=== PATIENT | male | born 1990 | race Caucasian/White ===

== ENCOUNTER 2016-12-25 14:37 | Emergency (ER) | payer MEDICAID ==
[~2016-12-25 14:37] MED LIST: BENADRYL25 MG PO; CARBAMAZEPINE200 M1 PO; FLOMAX0.4 MG PO; KLONOPIN0.5 MG PO; LEVAQUIN500 MG PO; REMERON30 MG PO; RISPERDAL1 MG PO
--- NOTE | 2017-01-10 15:27 | ER ---
ADMIT: 12/25/2016 RM/LOC: ER [facility] MR#: [id number] [address] [address] CHINYERE LANDIN [address] [place] [address] Emergency Room Report SEX: M AGE: 26 : 1990 DATE: 12/25/2016 ADDENDUM: A 26-year-old white male coming in after cutting his left index finger on the dorsum of his finger. Note neurovascular tendon disruption. This is closed by the PA student under my supervision. Sutures should come out in 7-10 days. Keep it dressed and clean and dry. CONDITION ON DISCHARGE: Improved. Mikhail Mcconnell MD/ carolyn JOB #: [id number] CC: Mikhail Mcconnell MD, Attending Physician Darlene Tellez MD, Family Physician
== END 2016-12-25 15:48 | disposition home or self-care (01) ==
LOC: ER 14:37
DX: S61.211A Laceration without foreign body of left index finger without damage to nail, initial encounter (principal); F17.210 Nicotine dependence, cigarettes, uncomplicated; Z88.0 Allergy status to penicillin; W26.0XXA Contact with knife, initial encounter; Y92.009 Unspecified place in unspecified non-institutional (private) residence as the place of occurrence of the external cause

== ENCOUNTER 2017-01-03 23:07 | Emergency (ER) | payer MEDICAID ==
--- NOTE | 2017-01-11 18:52 | ER ---
ADMIT: 01/03/2017 RM/LOC: ER [facility] MR#: [id number] [address] [address] CHINYERE LANDIN [address] [place] [address] Emergency Room Report SEX: M AGE: 26 : 1990 DATE: 01/03/2017 ADDENDUM: This patient comes to the ER because he states he was washing glass and the glass broke and cut his left hand. He has 5 lacerations on his left hand dorsal aspect; 2 of them are superficial and do not require stitches, 3 of them goes through the dermis and do require stitches. He has good range of motion of all of his digits. The laceration goes through the top layer of dermis, no tendons are affected. I infiltrated the area with lidocaine and/or epi and placed a total of 11 stitches using 4-0 Prolene. I did infiltrate the area with bupivacaine with lidocaine. The police were contacted, stitches were removed in 7 days. Please see my T-sheet. ADÁN Alfaro / Omar Lyons MD / carolyn JOB #: [id number] CC: Omar Lyons MD, Attending Physician Maxime De Oliveira MD, Family Physician
== END 2017-01-04 00:05 | disposition home or self-care (01) ==
LOC: ER 23:07
PROC: 0HQGXZZ Repair Left Hand Skin, External Approach (ICD-10-PCS; principal; 2017-01-03)
DX: S61.412A Laceration without foreign body of left hand, initial encounter (principal); W25.XXXA Contact with sharp glass, initial encounter; Y92.009 Unspecified place in unspecified non-institutional (private) residence as the place of occurrence of the external cause

== ENCOUNTER 2017-01-04 12:06 | Emergency (ER) | payer MEDICAID ==
--- NOTE | 2017-01-16 10:17 | ER ---
ADMIT: 01/04/2017 RM/LOC: ER [facility] MR#: [id number] [address] [address] CHINYERE LANDIN [address] [place] [address] Emergency Room Report SEX: M AGE: 26 : 1990 DATE: 01/04/2017 ADDENDUM: CHIEF COMPLAINT: Left hand lacerations. HISTORY OF PRESENT ILLNESS: This is a 26-year-old male who has multiple lacerations to the dorsal side of his hand. He was in the emergency room yesterday. Darlene Daly did a repair. The only reason he comes back today saying that he is having pain and wants the pain medications for it. I told him we do not usually routinely prescribe pain medications for lacerations that he needs to keep it covered and that will help with the pain. Use an ice pack. Use Motrin and Tylenol and having him follow up with Dr. Drake next week. We actually called over to Family Practice made an appointment for 2:10 next Sunday for the suture removal. CLINICAL IMPRESSION: Healing lacerations to left hand. ADÁN Howell / Mikhail Mcconnell MD / carolyn JOB #: [id number] CC: Mikhail Mcconnell MD, Attending Physician Jorge Drake MD, Family Physician
== END 2017-01-04 12:55 | disposition home or self-care (01) ==
LOC: ER 12:06
DX: S61.412D Laceration without foreign body of left hand, subsequent encounter (principal); X58.XXXD Exposure to other specified factors, subsequent encounter; F17.210 Nicotine dependence, cigarettes, uncomplicated; F41.9 Anxiety disorder, unspecified; Z88.0 Allergy status to penicillin; Z88.2 Allergy status to sulfonamides

== ENCOUNTER 2017-01-04 23:22 | Emergency (ER) | payer MEDICAID ==
--- NOTE | 2017-01-05 19:14 | ER ---
ADMIT: 01/04/2017 RM/LOC: ER MR#: [id number] [address] [address] CHINYERE LANDIN [address] [place] [address] Emergency Room Report SEX: M AGE: 26 : 1990 DATE: 01/04/2017 HISTORY OF PRESENT ILLNESS: The patient is a 26-year-old male with no significant past medical history, who came to the ER because of the left knee pain. The patient states a year ago, he slipped and hit the left knee to the ground and after that, he was diagnosed with possible left knee meniscus injury and ACL ligament injury and since he could not afford/follow up with orthopedic surgeon. He did not have any surgeries and has been limping on the left leg until now. The patient states today he was walking when he felt a pop and he felt the knee popped out and back, and he also twisted the knee to the medial and states after that he noticed swelling and the pain increased. The patient denies any head trauma. The patient denies any pain in other parts of the body. PHYSICAL EXAMINATION: HEAD, NECK, CHEST, ABDOMEN: Noncontributory EXTREMITIES: In the left knee, there is swelling and ballottement positive, with ecchymosis and erythema, mostly on the lateral part. Anterior drawer test, meniscal test, posterior drawer test could not be performed because of the pain. IMAGING DATA: Concerning possibility of dislocation and spontaneous reduction of the left knee, CT angiogram of the left lower extremity was done, which showed extension of the femoral and popliteal arteries equally bilaterally. PLAN: Pain was controlled. The patient was put on SANDRA Wrap to be taken on a knee immobilizer, which he has at home. The patient was discharged home with crutches, prescription for pain control medications. Follow up with the orthopedic clinic today for further followups and treatments. Omar Lyons MD/ carolyn JOB #: [id number] CC: Omar Lyons MD, Attending Physician Torito Vsaquez MD, Family Physician
== END 2017-01-05 04:58 | disposition home or self-care (01) ==
LOC: ER 23:22
DX: M25.562 Pain in left knee (principal); M79.89 Other specified soft tissue disorders; F17.210 Nicotine dependence, cigarettes, uncomplicated; Z88.0 Allergy status to penicillin; Z88.5 Allergy status to narcotic agent

== ENCOUNTER 2017-01-06 15:01 | Emergency (ER) | payer MEDICAID ==
--- NOTE | 2017-01-07 23:16 | ER ---
ADMIT: 01/06/2017 RM/LOC: ER [facility] MR#: [id number] [id number] [place], [place] [address] CHINYERE LANDIN [address] [facility] [address] [place] [address] Emergency Room Report SEX: M AGE: 26 : 1990 DATE: 01/06/2017 CHIEF COMPLAINT: Left knee pain. HISTORY OF PRESENT ILLNESS: The patient is a 26-year-old male, who has been having left knee pain for many months now. He states he feels like his knee gives out and sometimes he feels like it collapses. He was actually seen for this in our Emergency Department 2 days ago. At that time, he had an x-ray done and was given 20 of [place] and told to follow up with Orthopedics. The patient states he has not called to set up an appointment with Orthopedics. On further questioning, he states that he has been having this for many months and actually had an MRI done in [place] several months ago, which showed an ACL injury and a possible meniscal injury. He had not followed up on those recommendations at that time to get anything done to his knee. He does have knee immobilizer at home that he has not been wearing it. He has been using crutches occasionally. He denies any other new complaints at this time. PAST MEDICAL HISTORY: Anxiety. MEDICATIONS: 1. Clonazepam. 2. Apparently, [place] that was prescribed 2 days ago in the quantity 20. ALLERGIES: PENICILLIN. PHYSICAL EXAMINATION: VITAL SIGNS: Reviewed and unremarkable. HEENT: Head is atraumatic. The patient is in no respiratory distress. EXTREMITIES: He can move all extremities. Evaluation of his left knee reveals he does have some swelling to the left knee with some mild ecchymosis. He has no signs of infection. He has good pulses distally. Sensation is intact. I am not able to do good assessment checking for stability of his knee as he has not tolerated at this time. I did review his recent radiology studies including the CT that was done of his knee 3 months ago. I did not have access to his MRI as it was done as an outside facility and I cannot get hold of it today. MEDICAL DECISION MAKING: Based on my evaluation, I do believe the patient likely has a ligamentous injury to his knee that has been going on for quite some time. He is told that this is not a problem I can fix in the Emergency Department and that he needs to follow up with a surgeon if he wants to address the issue. He has not been wearing his knee immobilizer, which I told ADMIT: 01/06/2017 RM/LOC: [facility] MR#: [id number] [address] [place] [address] [address] [place] [address] Emergency Room Report SEX: M AGE: 26 : 1990 him he needs to wear, and he is to call on Sunday morning to make an appointment with Orthopedics. He was asking for pain medications, but I have reviewed the chart and states that he was given a prescription for 20 [place] just 2 days ago, and at this time, I am unwilling to give the patient any additional narcotic pain medications. He was given a shot of Toradol in the Emergency Department, and he will be discharged home to use his knee immobilizer, use his crutches that he has with him today. He is to rest, ice, elevate, and use ibuprofen also. He can return for any other concerning symptoms. With regard to his knee, he is told that he needs to follow up with Orthopedics. DIAGNOSIS: Left knee pain. Torito Romero MD/ carolyn JOB #: [id number] CC: Mikhail Mcconnell MD, Attending Physician Torito Vasquez MD, Family Physician
== END 2017-01-06 16:06 | disposition home or self-care (01) ==
LOC: ER 15:01
DX: M25.562 Pain in left knee (principal); Z88.0 Allergy status to penicillin

== ENCOUNTER 2017-01-10 17:04 | Emergency (ER) | payer MEDICAID ==
--- NOTE | 2017-01-12 04:09 | ER ---
ADMIT: 01/10/2017 RM/LOC: ER [facility] MR#: [id number] [id number] [place], [place] [address] CHINYERE LANDIN [address] [place] [address] Emergency Room Report SEX: M AGE: 26 : 1990 DATE: 01/10/2017 TIME: 1704 Please refer to my T-sheet for complete H and P. HISTORY OF PRESENT ILLNESS: Briefly, the patient is a 26-year-old who comes in with knee pain and swelling. He states he has had an injury about a year ago, where he had an ACL problem. He has not been able to get it fixed because he does not have insurance. Comes in saying that it kind of popped and subluxed about 2 weeks ago and he is still hurting. PHYSICAL EXAMINATION: VITAL SIGNS: Stable. EXTREMITIES: His left knee is swollen. He is hard to tell if he has lacks because he has restriction secondary to the effusion. He has dependent edema below and neurovascularly intact distally. EMERGENCY DEPARTMENT COURSE: I did call Dr. Phelps, discussed with him, but the patient has not made an effort significantly in the past, but they will follow him up. ASSESSMENT: Left knee internal derangement. PLAN: Knee immobilizer. Rest, ice, elevate, crutches. Follow up with Dr. Phelps. Ethan Urban MD/ modl JOB #: [id number] CC: Mikhail Mcconnell MD, Attending Physician Gurjit Phelps MD, Family Physician
== END 2017-01-10 21:30 | disposition home or self-care (01) ==
LOC: ER 17:04
DX: S89.92XA Unspecified injury of left lower leg, initial encounter (principal); F31.9 Bipolar disorder, unspecified; F41.9 Anxiety disorder, unspecified; F17.210 Nicotine dependence, cigarettes, uncomplicated; Z88.0 Allergy status to penicillin; X58.XXXA Exposure to other specified factors, initial encounter; Y92.410 Unspecified street and highway as the place of occurrence of the external cause